=== PATIENT | male | born 1980 | race Caucasian/White ===

== ENCOUNTER 2018-06-30 21:31 | Emergency (ER) | payer BC ==
[2018-06-30 22:56] LABS: BASO % 0.6 % (0-6); EOS % 2.4 % (0-6); GRAN % 57.6 % (47-80); HEMATOCRIT 43.4 % (42.0-52.0); HEMOGLOBIN 14.5 gm/dl (14.0-18.0); LYMPH % 31.2 % (16-45); MEAN CELL VOLUME 84.4 fl (81-97); MEAN CORPUSCULAR HEMOGLOBIN 28.2 pg (27-33); MEAN CORPUSCULAR HGB CONC 33.4 g/dl (32-36); MONO % 8.2 % (0-9); PLATELET COUNT 234 K/uL (130-400); RED BLOOD COUNT 5.14 M/uL (4.40-5.70); URINE APPEARANCE CLEAR; URINE BILIRUBIN NEGATIVE (NEGATIVE); URINE BLOOD NEGATIVE (NEGATIVE); URINE COLOR YELLOW; URINE GLUCOSE (UA) NEGATIVE (NEGATIVE); URINE KETONE NEGATIVE (NEGATIVE); URINE LEUKOCYTE ESTERASE NEGATIVE (NEGATIVE); URINE NITRITE NEGATIVE (NEGATIVE); URINE PROTEIN NEGATIVE (NEGATIVE); URINE UROBILINOGEN 0.2 E.U./dL (0.20 - 1.00); WHITE BLOOD COUNT W/O DIFF 6.6 K/uL (4.2-12.2)
--- NOTE | 2018-06-30 23:02 | Emergency Department Record ---
History of Present Illness - General Chief Complaint: Wound, check Stated Complaint: PAIN BY HIS HERNIA SURGERY AREA Time Seen by Provider: 06/30/18 22:28 Source: Patient Mode of arrival: Ambulatory Limitations: No limitations - History of Present Illness Initial Comments: pt has had hematuria and supra pubic pain. he wants to be checked for stds as he has a new partner. the pain is intermittent. pt had hernia surgery 13 yrs ago Complaint: Other Onset/Timin -: Week(s) Returns Today for: Other - Related Data Home Medications Medication Instructions Recorded Confirmed Last Taken Bupropion HCl [Wellbutrin Xl] 300 mg PO DAILY 06/30/18 06/30/18 Unknown Allergies Allergy/AdvReac Type Severity Reaction Status Date / Time No Known Drug Allergies Allergy Unverified 07/22/16 09:01 Travel Screening - Travel/Exposure Within Last 30 Days Have you traveled within the last 30 days?: No - Travel/Exposure Within Last Year Have you traveled outside the [place] in the last year?: No - Additonal Travel Details Have you been exposed to anyone with a communicable illness?: No - Travel Symptoms Symptom Screening: None Review of Systems Reviewed: No additional complaints except as noted below Constitutional: Reports: As per HPI. Denies: Chills, Fever, Malaise, Night sweats, Weakness, Weight change Eyes: Reports: As per HPI. Denies: Eye discharge, Eye pain, Photophobia, Vision change ENT: Reports: As per HPI. Denies: Congestion, Dental pain, Ear pain, Epistaxis , Hearing loss, Throat pain Respiratory: Reports: As per HPI. Denies: Cough, Dyspnea, Hemoptysis, Stridor, Wheezes Cardiovascular: Reports: As per HPI. Denies: Arrhythmia, Chest pain, Dyspnea on exertion, Edema, Murmurs, Orthopnea, Palpitations, Paroxysmal nocturnal dyspnea, Rheumatic Fever, Syncope Endocrine: Reports: As per HPI. Denies: Fatigue, Heat or cold intolerance, Polydipsia, Polyuria Gastrointestinal: Reports: As per HPI. Denies: Abdominal pain, Constipation, Diarrhea, Hematemesis, Hematochezia, Melena, Nausea, Vomiting Genitourinary: Reports: As per HPI. Denies: Dysuria, Frequency, Hematuria, Incontinence, Retention, Testicular pain, Testicular mass, Urgency Musculoskeletal: Reports: As per HPI. Denies: Arthralgia, Back pain, Gout, Joint swelling, Myalgia, Neck pain Skin: Reports: As per HPI. Denies: Bruising, Change in color, Change in hair/ nails, Lesions, Pruritus, Rash Neurological: Reports: As per HPI. Denies: Abnormal gait, Confusion, Headache, Numbness, Paresthesias, Seizure, Tingling, Tremors, Vertigo, Weakness Psychiatric: Reports: As per HPI. Denies: Anxiety, Auditory hallucinations, Depression, Homicidal thoughts, Suicidal thoughts, Visual hallucinations Hematological/Lymphatic: Reports: As per HPI. Denies: Anemia, Blood Clots, Easy bleeding, Easy bruising, Swollen glands Past Medical History - SOCIAL HISTORY Smoking Status: Former smoker Alcohol Use: Occasional Drug Use: None - RESPIRATORY Hx Respiratory Disorders: No - CARDIOVASCULAR Hx Cardio Disorders: No - NEURO Hx Neuro Disorders: No - GI Hx GI Disorders: No - Hx Genitourinary Disorders: No - ENDOCRINE Hx Endocrine Disorders: No - MUSCULOSKELETAL Hx Musculoskeletal Disorders: No - PSYCH Hx Psych Problems: No - HEMATOLOGY/ONCOLOGY Hx Hematology/Oncology Disorders: No Family Medical History Any Significant Family History?: No Physical Exam - General General Appearance: Alert, Oriented x3, Cooperative, Mild distress - Head Head exam: Normal inspection - Eye Eye exam: Normal appearance, PERRL, EOMI Pupils: Normal accommodation - ENT ENT exam: Normal exam, Mucous membranes moist, Normal external ear exam, Normal orophraynx Ear exam: Normal external inspection. negative: External canal tenderness Nasal Exam: Normal inspection. negative: Discharge, Sinus tenderness Mouth exam: Normal external inspection, Tongue normal Teeth exam: Normal inspection. negative: Dental caries Throat exam: Normal inspection. negative: Tonsillar erythema, Tonsillar exudate - Neck Neck exam: Normal inspection, Full ROM. negative: Tenderness - Respiratory Respiratory exam: Normal lung sounds bilaterally. negative: Respiratory distress - Cardiovascular Cardiovascular Exam: Regular rate, Normal rhythm, Normal heart sounds - GI/Abdominal GI/Abdominal exam: Soft, Normal bowel sounds. negative: Tenderness - Rectal Rectal exam: Deferred - exam: Circumcision, Normal inspection - Extremities Extremities exam: Normal inspection, Full ROM, Normal capillary refill. negative: Tenderness - Back Back exam: Reports: Normal inspection, Full ROM. Denies: Muscle spasm, Rash noted, Tenderness - Neurological Neurological exam: Alert, CN II-XII intact, Normal gait, Oriented X3 - Psychiatric Psychiatric exam: Normal affect, Normal mood - Skin Skin exam: Dry, Intact, Normal color, Warm Course Vital Signs 06/30/18 22:17 Temperature 98.2 F Pulse Rate 75 Respiratory 20 Rate Blood Pressure 140/87 Pulse Ox 98 Medical Decision Making - Lab Data Result diagrams: 06/30/18 22:50 06/30/18 22:50 Lab Results 06/30/18 Range/Units 22:50 WBC 6.6 (4.2-12.2) K/uL RBC 5.14 (4.40-5.70) M/uL Hgb 14.5 (14.0-18.0) gm/dl Hct 43.4 (42.0-52.0) % MCV 84.4 (81-97) fl MCH 28.2 (27-33) pg MCHC 33.4 (32-36) g/dl RDW 14.0 (11.5-14.5) % Plt Count 234 (130-400) K/uL MPV 10.0 (7.4-10.4) fl Gran % 57.6 (47-80) % Lymphocytes % 31.2 (16-45) % Monocytes % 8.2 (0-9) % Eosinophils % 2.4 (0-6) % Basophils % 0.6 (0-6) % Disposition Disposition: Discharge Clinical Impression: Hx of hematuria Abdominal pain Qualifiers: Abdominal location: lower abdomen, unspecified Qualified Code(s): R10.30 - Lower abdominal pain, unspecified Disposition: Home, Self-Care Condition: (1) Good Instructions: Hematuria (ED), Abdominal Pain (ED) Additional Instructions: follow up with family doctor. return sooner if worse. Forms: Patient Portal Access Quality - Quality Measures Quality Measures: N/A - Blood Pressure Screening Does Patient Have Any of the Following: No Blood Pressure Classification: Pre-Hypertensive BP Reading Systolic Measurement: 140 Diastolic Measurement: 87 Screening for High Blood Pressure: < Pre-Hypertensive BP, F/U Documented > [ [id number]] Pre-Hypertensive Follow-up Interventions: Follow-up with rescreen every year.
[2018-06-30 23:27] LABS: BLOOD UREA NITROGEN 14 mg/dL (6-20)
[2018-06-30 23:28] LABS: CREATININE 0.7 mg/dL (0.7-1.2); EST GLOMERULAR FILTRATION RATE > 60 mL/min; TOTAL PROTEIN 7.8 g/dL (6.6-8.7)
[2018-06-30 23:30] LABS: GLUCOSE,RANDOM 87 mg/dL (74-109)
[2018-06-30 23:33] LABS: ALB/GLOB RATIO 1.7 (1.1-1.8); ALBUMIN 4.9 g/dL (4.0-5.0); ALKALINE PHOSPHATASE 69 U/L (40-129); ALT/SGPT 36 U/L (<41); AST/SGOT 22 U/L (10.0-50.0)
--- NOTE | 2018-07-03 23:14 | CT SCAN REPORT ---
EXAM: CT SCAN ABDOMEN/PELVIS WO CONTRAST HISTORY: SUPRAPUBIC ABDOMINAL PAIN AND LEFT LOWER QUADRANT PAIN, HEMATURIA. SYMPTOMS FOR A WEEK. LEFT INGUINAL HERNIA SURGERY 13 YEARS AGO. TECHNIQUE: Axial CT scan of the abdomen and pelvis performed without oral or IV contrast. Preliminary report provided by [facility]. COMPARISON: No prior CT with which to compare. FINDINGS: No calcified gallstones are seen within the gallbladder. No intrarenal calculi identified on either side. No hydronephrosis or hydroureter is seen. No ureteral calculus seen on either side and no bladder calculus evident. Evaluation of the bowel and viscera is quite limited without oral or IV contrast. Given this limitation, no definite hepatic, splenic, adrenal, pancreatic, or renal mass identified. The appendix is visualized and is of normal caliber with no appendicitis evident. Very small periumbilical anterior abdominal wall hernia containing adipose tissue but no bowel. No free intraperitoneal air or free intraperitoneal fluid identified. Mild spurring in the lower thoracic spine. IMPRESSION: 1. NO DEFINITE URINARY TRACT CALCULI OR HYDRONEPHROSIS EVIDENT. 2. SMALL PERIUMBILICAL ANTERIOR ABDOMINAL WALL HERNIA CONTAINING ADIPOSE TISSUE BUT NO BOWEL. 3. NO APPENDICITIS EVIDENT. NO FREE AIR OR FREE FLUID EVIDENT. JOB NUMBER: [id number] MTDD
== END 2018-06-30 23:56 | disposition home or self-care (01) ==
LOC: ER 21:31
DX: R31.0 Gross hematuria (principal); R10.30 Lower abdominal pain, unspecified; Z87.891 Personal history of nicotine dependence
CPT/HCPCS: 74176; 80053; 81003; 85025; 99283; 99284